=== PATIENT | female | born 1955 | race Caucasian/White ===

== ENCOUNTER 2016-11-11 12:50 | Observation (INO) | payer MEDICARE ==
[~2016-11-11] VITALS: Ht 157.5 cm; Wt 113.6 kg
[2016-11-11 12:54] VITALS: BP 172/83; PULSE 78; RESP 16; TEMP 97.8; O2SAT 95
[2016-11-11] MEDS ORDERED: NITROGLYCERIN 0.4 MG SL 25 TABS/BTL SL ONE (15:00)
[2016-11-11] MEDS ORDERED: ASPIRIN 81 MG CHEW TAB PO ONE (15:00)
[2016-11-11] MEDS ORDERED: SODIUM CHLORIDE 0.9% FLUSH 10 ML FLUSH IVF PRN (15:00)
--- NOTE | 2016-11-11 15:11 | PD ---
HPI Chief Complaint: Cardiac Complaint Time Seen by Provider: 14:46 Travel History International Travel<30 days: No Contact w/Intl Traveler<30days: No Traveled to known affect area: No History of Present Illness HPI The patient is a 61-year-old female who presents to the emergency department for palpitations and chest pain. The patient notes a three-week history of chest pain, now described as pressure, with shortness of breath. The patient states her symptoms worsen earlier today when she found out her would have to see a neurologist in [place]. The patient is currently visiting her mother who resides in a longterm. The patient states her symptoms started 3 weeks ago when she saw her primary physician who was going to perform an outpatient stress test, however, she has not yet had a stress test complete. She called the physician sound assistant who works for her physician who requested she come to the emergency department for further evaluation. The chest pain is described as pressure, substernal, nonradiating, associated with shortness of breath which is worse with exertion and minimally alleviated at rest. The patient has a history of hypertension which is diet controlled, denies any history of hyperlipidemia, diabetes, or coronary artery disease. The patient does have a history of tobacco use, quit smoking 22 years ago. The patient denies any history of pulmonary embolism or DVT. 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) Hysterectomy: Yes Social History Alcohol Use: No Tobacco Use: No Substance Use: No Allergies-Medications (Allergen,Severity, Reaction): Coded Allergies: kiwi (Verified Allergy, Severe, THROAT SWELLING, SHORTNESS OF BREATH, 11/11) Reported Meds & Prescriptions Reported Meds & Active Scripts Active Reported Lipitor (Atorvastatin Calcium) 20 Mg Tab 20 Mg PO HS Singulair (Montelukast Sodium) 10 Mg Tab 10 Mg PO HS Protonix (Pantoprazole Sodium) 40 Mg Tab 40 Mg PO DAILY Ambien (Zolpidem Tartrate) 10 Mg Tab 10 Mg PO HS PRN Spiriva Respimat Inh (Tiotropium Inh) 1.25 Mcg/Act Aero 2 Puff INH DAILY 1.25 mcg = 1 inhalation Effexor XR 24 HR (Venlafaxine HCl) 37.5 Mg Cap 37.5 Mg PO DAILY 7 Days After 7 days increase to 75mg daily Wellbutrin Xl 24 HR (Bupropion HCl) 150 Mg Tab 450 Mg PO DAILY Review of Systems Except as stated in HPI: all other systems reviewed are Neg HENT: No: Lightheadedness Cardiovascular: Positive: Chest Pain or Discomfort, Palpitations, Diaphoresis, Dyspnea on exertion Respiratory: Positive: Shortness of Breath Gastrointestinal: Positive: Nausea, No: Vomiting Musculoskeletal: No: Edema Neurologic: No: Dizziness Physical Exam Narrative GENERAL: Awake, alert, pleasant 61-year-old female who appears her stated age and is in no acute respiratory distress. SKIN: Focused skin assessment warm/dry. HEAD: Atraumatic. Normocephalic. EYES: Pupils equal and round. No scleral icterus. No injection or drainage. ENT: No nasal bleeding or discharge. Mucous membranes pink and moist. NECK: Trachea midline. No JVD. CARDIOVASCULAR: Regular rate and rhythm. No murmur appreciated. RESPIRATORY: No accessory muscle use. Clear to auscultation. Breath sounds equal bilaterally. GASTROINTESTINAL: Abdomen soft, non-tender, nondistended. Laparoscopic scars noted on the abdomen, no rebound tenderness. MUSCULOSKELETAL: No obvious deformities. No clubbing. No cyanosis. No edema. NEUROLOGICAL: Awake and alert. No obvious cranial nerve deficits. Motor grossly within normal limits. Normal speech. PSYCHIATRIC: Appropriate mood and affect; insight and judgment normal. Data Data Last Documented VS Vital Signs Date Time Temp Pulse Resp B/P Pulse Ox O2 Delivery O2 Flow Rate FiO2 11/11/16 15:25 98 18 145/56 100 Room Air 11/11/16 12:54 97.8 Orders Electrocardiogram (11/11/16 ) Electrocardiogram (11/11/16 14:59) Ckmb (Isoenzyme) Profile (11/11/16 14:59) Complete Blood Count With Diff (11/11/16 14:59) Comprehensive Metabolic Panel (11/11/16 14:59) Magnesium (Mg) (11/11/16 14:59) Prothrombin Time / Inr (Pt) (11/11/16 14:59) Act Partial Throm Time (Ptt) (11/11/16 14:59) Troponin I (11/11/16 14:59) Lipase (11/11/16 14:59) Chest, Single Ap (11/11/16 14:59) Ecg Monitoring (11/11/16 14:59) Bilateral Bp Monitoring (11/11/16 14:59) Iv Access Insert/Monitor (11/11/16 14:59) Oximetry (11/11/16 14:59) Oxygen Administration (11/11/16 14:59) Aspirin Chew (Aspirin Chew) (11/11/16 15:00) Sodium Chloride 0.9% Flush (Ns Flush) (11/11/16 15:00) Nitroglycerin Sl (Nitrostat Sl) (11/11/16 15:00) Admit Order (Ed Use Only) (11/11/16 16:33) Labs Laboratory Tests Test 11/11/16 15:16 White Blood Count 10.7 TH/MM3 Red Blood Count 4.42 MIL/MM3 Hemoglobin 13.3 GM/DL Hematocrit 40.1 % Mean Corpuscular Volume 90.7 FL Mean Corpuscular Hemoglobin 30.0 PG Mean Corpuscular Hemoglobin 33.1 % Concent Red Cell Distribution Width 13.5 % Platelet Count 239 TH/MM3 Mean Platelet Volume 8.5 FL Neutrophils (%) (Auto) 65.4 % Lymphocytes (%) (Auto) 24.5 % Monocytes (%) (Auto) 7.0 % Eosinophils (%) (Auto) 2.6 % Basophils (%) (Auto) 0.5 % Neutrophils # (Auto) 7.0 TH/MM3 Lymphocytes # (Auto) 2.6 TH/MM3 Monocytes # (Auto) 0.8 TH/MM3 Eosinophils # (Auto) 0.3 TH/MM3 Basophils # (Auto) 0.1 TH/MM3 CBC Comment DIFF FINAL Differential Comment Prothrombin Time 10.2 SEC Prothromb Time International 0.9 RATIO Ratio Activated Partial 30.3 SEC Thromboplast Time Sodium Level 142 MEQ/L Potassium Level 3.4 MEQ/L Chloride Level 104 MEQ/L Carbon Dioxide Level 28.6 MEQ/L Anion Gap 9 MEQ/L Blood Urea Nitrogen 18 MG/DL Creatinine 0.83 MG/DL Estimat Glomerular Filtration 70 ML/MIN Rate Random Glucose 79 MG/DL Calcium Level 8.9 MG/DL Magnesium Level 2.2 MG/DL Total Bilirubin 0.3 MG/DL Aspartate Amino Transf 12 U/L (AST/SGOT) Alanine Aminotransferase 20 U/L (ALT/SGPT) Alkaline Phosphatase 73 U/L Total Creatine Kinase 91 U/L Troponin I LESS THAN 0.02 NG/ML Total Protein 7.4 GM/DL Albumin 3.4 GM/DL Lipase 69 U/L [facility] Medical Decision Making Medical Screen Exam Complete: Yes Emergency Medical Condition: Yes Medical Record Reviewed: Yes Interpretation(s) EKG reveals normal sinus rhythm with a rate of 60. No ischemic changes or ectopy noted. Chest x-rays unremarkable Laboratory Tests Test 11/11/16 15:16 White Blood Count 10.7 TH/MM3 Red Blood Count 4.42 MIL/MM3 Hemoglobin 13.3 GM/DL Hematocrit 40.1 % Mean Corpuscular Volume 90.7 FL Mean Corpuscular Hemoglobin 30.0 PG Mean Corpuscular Hemoglobin 33.1 % Concent Red Cell Distribution Width 13.5 % Platelet Count 239 TH/MM3 Mean Platelet Volume 8.5 FL Neutrophils (%) (Auto) 65.4 % Lymphocytes (%) (Auto) 24.5 % Monocytes (%) (Auto) 7.0 % Eosinophils (%) (Auto) 2.6 % Basophils (%) (Auto) 0.5 % Neutrophils # (Auto) 7.0 TH/MM3 Lymphocytes # (Auto) 2.6 TH/MM3 Monocytes # (Auto) 0.8 TH/MM3 Eosinophils # (Auto) 0.3 TH/MM3 Basophils # (Auto) 0.1 TH/MM3 CBC Comment DIFF FINAL Differential Comment Prothrombin Time 10.2 SEC Prothromb Time International 0.9 RATIO Ratio Activated Partial 30.3 SEC Thromboplast Time Sodium Level 142 MEQ/L Potassium Level 3.4 MEQ/L Chloride Level 104 MEQ/L Carbon Dioxide Level 28.6 MEQ/L Anion Gap 9 MEQ/L Blood Urea Nitrogen 18 MG/DL Creatinine 0.83 MG/DL Estimat Glomerular Filtration 70 ML/MIN Rate Random Glucose 79 MG/DL Calcium Level 8.9 MG/DL Magnesium Level 2.2 MG/DL Total Bilirubin 0.3 MG/DL Aspartate Amino Transf 12 U/L (AST/SGOT) Alanine Aminotransferase 20 U/L (ALT/SGPT) Alkaline Phosphatase 73 U/L Total Creatine Kinase 91 U/L Troponin I LESS THAN 0.02 NG/ML Total Protein 7.4 GM/DL Albumin 3.4 GM/DL Lipase 69 U/L Differential Diagnosis Differential diagnosis includes acute coronary syndrome, STEMI, deconditioning, cardiomyopathy, pleural effusion, congestive heart failure, pulmonary embolism, symptomatic anemia. Narrative Course IV was established, labs were drawn and sent, and the patient was placed on cardiac telemetry monitoring and continuous pulse oximetry monitoring. EKG was ordered and interpreted. I doubt the patient has a pulmonary embolism as her heart rate was 60, pulse oximetry is within normal limits, and her symptoms started 3 weeks ago, prior to travel. The patient has progressing chest pain described as pressure with shortness of breath, may have acute coronary syndrome. The patient was administered aspirin and nitroglycerin sublingual. Chest x-ray was obtained. Chest x-ray was negative. The patient's initial troponin is negative. The patient does have risk factors, slightly atypical pain, will be 23 hour observation to the chest pain center for serial cardiac enzymes and further evaluation by cardiology for possible stress test. The patient is comfortable with this plan of care and disposition. Physician Communication Physician Communication The patient will be a 23 hour observation to the chest pain center for serial cardiac enzymes and further evaluation by cardiology. Diagnosis Primary Impression: Chest pain Qualified Code: R07.9 - Chest pain, unspecified type Admitting Information Admitting Physician Requests: Observation Condition: Stable Sanjeev Somers MD Nov 11, 2016 15:10 Condition: Stable Sanjeev Somers MD Nov 11, 2016 15:10
[2016-11-11 15:25] VITALS: BP 145/56; PULSE 98; RESP 18; O2SAT 100
[2016-11-11 15:27] LABS: BASOPHIL # 0.1 TH/MM3 (0-0.2); BASOPHIL % 0.5 % (0.0-2.0); EOSINOPHIL # 0.3 TH/MM3 (0-0.4); EOSINOPHIL % 2.6 % (0.0-4.0); HEMATOCRIT 40.1 % (35.0-46.0); HEMO FLAGS DIFF FINAL; LYMPH % 24.5 % (9.0-44.0); LYMPHOCYTE # 2.6 TH/MM3 (1.0-4.8); MEAN CELL VOLUME 90.7 FL (80.0-100.0); MEAN CORPUSCULAR HGB CONC 33.1 % (32.0-36.0); NEUT % 65.4 % (16.0-70.0); PLATELET COUNT 239 TH/MM3 (150-450); RED BLOOD COUNT 4.42 MIL/MM3 (4.00-5.30); RED CELL DISTRIBUTION WIDTH 13.5 % (11.6-17.2); WHITE BLOOD COUNT 10.7 TH/MM3 (4.0-11.0)
[2016-11-11 15:37] LABS: APTT (PATIENT) 30.3 SEC (24.3-30.1); INTERNATIONAL NORMALIZED RATIO 0.9 RATIO; PROTHROMBIN TIME - PATIENT 10.2 SEC (9.8-11.6)
[2016-11-11 15:43] LABS: ALT (GPT) 20 U/L (10-53); ANION GAP 9 MEQ/L (5-15); AST (GOT) 12 U/L (15-37); BICARBONATE 28.6 MEQ/L (21.0-32.0); BLOOD UREA NITROGEN 18 MG/DL (7-18); CHLORIDE 104 MEQ/L (98-107); GLOMERULAR FILTRATION RATE 70 ML/MIN (>89); MAGNESIUM 2.2 MG/DL (1.5-2.5); POTASSIUM 3.4 MEQ/L (3.5-5.1); SODIUM (NA) 142 MEQ/L (136-145)
[2016-11-11 15:47] LABS: ALKALINE PHOSPHATASE 73 U/L (45-117); TOTAL BILIRUBIN ADULT 0.3 MG/DL (0.2-1.0)
[2016-11-11 15:49] LABS: CREATINE KINASE 91 U/L (26-192)
[2016-11-11] MEDS ORDERED: BUPR150XL PO (16:20)
[2016-11-11] MEDS ORDERED: LIPI20TA PO (16:20)
[2016-11-11] MEDS ORDERED: MONT10TA2 PO (16:20)
[2016-11-11] MEDS ORDERED: AMBI10TA PO (16:20)
[2016-11-11] MEDS ORDERED: VENL1CAP38 PO (16:20)
[2016-11-11] MEDS ORDERED: PROT40TA PO (16:20)
[2016-11-11] MEDS ORDERED: TIOT1AER2 INH (16:20)
--- NOTE | 2016-11-11 16:42 | RADRPT ---
EXAM DATE/TIME: 11/11/2016 16:31 [facility] COMPARISON: No previous studies available for comparison. INDICATIONS : Shortness of breath and chest pain. MEDICAL HISTORY : Chronic obstructive pulmonary disease. Congestive heart failure. SURGICAL HISTORY : None. ENCOUNTER: Initial ACUITY: 2 days PAIN SCORE: 3/10 LOCATION: Bilateral chest middle. FINDINGS: A single view of the chest demonstrates the lungs to be symmetrically aerated without evidence of mas s, infiltrate or effusion. The cardiomediastinal contours are unremarkable. Osseous structures are intact. CONCLUSION: No acute disease. Keyshawn Sweet MD on November 11, 2016 at 16:40 Board Certified Radiologist. This report was verified electronically.
[2016-11-11] MEDS ORDERED: cloNIDine HCL 0.1 MG TAB PO PRN (17:45)
[2016-11-11] MEDS ORDERED: POTASSIUM CHLORIDE 20 MEQ CONTROLLED RELEASE TAB PO ONE (17:45)
[2016-11-11] MEDS ORDERED: ACETAMINOPHEN 500 MG CPLT PO PRN (17:45)
[2016-11-11] MEDS ORDERED: ONDANSETRON HCL 4 MG/2 ML VIAL IV PUSH PRN (17:45)
[2016-11-11] MEDS ORDERED: ALPRAZolam 0.25 MG TAB PO PRN (17:45)
[2016-11-11] MEDS ORDERED: RESP: ALBUTEROL 2.5 MG/IPRATROPIUM 0.5 MG NEB (PRN) NEB (17:45)
[2016-11-11 18:49] VITALS: BP 152/75; PULSE 63; RESP 18; O2SAT 97
[2016-11-11 19:36] VITALS: BP_SYST 167; BP_DIAS 67; BP_DIAS 76; PULSE 69; PULSE 77; RESP 18; O2SAT 97
[2016-11-11 20:53] VITALS: BP 181/81; PULSE 73; RESP 18; TEMP 98.2; O2SAT 95
[2016-11-11] MEDS ORDERED: ATORVASTATIN 20 MG TAB PO SCH (21:00)
[2016-11-11] MEDS: ACETAMINOPHEN/HYDROcodone 325 MG/7.5 MG TAB PO PRN (21:15)
[2016-11-11 23:11] VITALS: BP 138/67; PULSE 67; RESP 18; TEMP 98.1; O2SAT 93
[2016-11-12 03:16] VITALS: BP 140/68; PULSE 69; RESP 18; TEMP 98
[2016-11-12 08:45] VITALS: PULSE 107
[2016-11-12 08:48] VITALS: BP 147/60; PULSE 80; RESP 18; TEMP 98.2; O2SAT 95
[2016-11-12] MEDS ORDERED: PANTOPRAZOLE SOD 40 MG DELAYED RELEASE TAB PO SCH (09:00)
[2016-11-12] MEDS ORDERED: ASPIRIN 325 MG TAB PO SCH (09:00)
--- NOTE | 2016-11-12 09:37 | HHI.HP ---
HPI Primary Care Physician Unknown Chief Complaint Chest pressure and diaphoresis History of Present Illness Mrs. Flowers is a 61-year-old female patient with a known medical history of CHF, COPD and history of CVA who presented to the ED with complaints of chest pressure and diaphoresis. Patient states she is from [place] here in [place] visiting her mother in the long-term. She has been having bouts of diaphoresis for the past 2.5 weeks and has followed up with her PCP with plans to perform a cardiac stress test when she arrives back to [place]. Patient does state that she fell out of the bed yesterday morning and since then has complaints of chest pressure in her left chest, intermittent in nature lasting about 5 minutes at a time, denies any aggravating or relieving factors. She does state she called her who updated her PCP and recommendations were for her to present here to the ED. Pain in the left chest reproducible to palpation. Left upper arm and left abdominal bruise noted. Denies any previous cardiac work up or history of stress testing. Denies any recent illness, including fever, chills, cough, shortness of breath, abdominal pain, nausea, vomiting or diarrhea. 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" Reported Medications Reported Meds & Active Scripts Active Reported Lipitor (Atorvastatin Calcium) 20 Mg Tab 20 Mg PO HS Singulair (Montelukast Sodium) 10 Mg Tab 10 Mg PO HS Protonix (Pantoprazole Sodium) 40 Mg Tab 40 Mg PO DAILY Ambien (Zolpidem Tartrate) 10 Mg Tab 10 Mg PO HS PRN Spiriva Respimat Inh (Tiotropium Inh) 1.25 Mcg/Act Aero 2 Puff INH DAILY 1.25 mcg = 1 inhalation Effexor XR 24 HR (Venlafaxine HCl) 37.5 Mg Cap 37.5 Mg PO DAILY 7 Days After 7 days increase to 75mg daily Wellbutrin Xl 24 HR (Bupropion HCl) 150 Mg Tab 450 Mg PO DAILY Active Ordered Medications Current Medications Medications (Trade) Dose Ordered Sig/Mary Route Start Time Stop Time Status Last Admin (NS Flush) 2 ml UNSCH PRN IVF 11/11/16 15:00 (Zofran Inj) 4 mg Q6H PRN IV PUSH 11/11/16 17:45 ([place] 7.5-325 Mg) 1 tab Q6H PRN PO 11/11/16 17:45 11/11/16 21:15 (Tylenol) 500 mg Q6H PRN PO 11/11/16 17:45 (Xanax) 0.25 mg Q8H PRN PO 11/11/16 17:45 (Catapres) 0.1 mg Q4H PRN PO 11/11/16 17:45 (Aspirin) 325 mg DAILY PO 11/12/16 09:00 (Lipitor) 20 mg HS PO 11/11/16 21:00 11/11/16 20:46 (Protonix) 40 mg DAILY PO 11/12/16 09:00 Family History Denies any significant family medical history of cardiovascular disease. Social History Patient admits to a tobacco abuse history quit 22 years ago. 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 Physical Exam Vital Signs Vital Signs Date Time Temp Pulse Resp B/P Pulse Ox O2 Delivery O2 Flow Rate FiO2 11/12/16 08:48 98.2 80 18 147/60 95 11/12/16 08:45 107 11/12/16 06:22 21 11/12/16 03:16 98.0 69 18 140/68 11/11/16 23:11 98.1 67 18 138/67 93 11/11/16 20:53 98.2 73 18 181/81 95 11/11/16 19:36 69 18 167/67 97 11/11/16 19:36 77 18 167/76 97 Room Air 11/11/16 18:49 63 18 152/75 97 Room Air 11/11/16 15:25 98 18 145/56 100 Room Air 11/11/16 15:05 97 Room Air 11/11/16 14:49 64 97 Room Air 11/11/16 12:54 97.8 78 16 172/83 95 Physical Exam GENERAL: Well-developed, obese female patient lying in bed in nad. SKIN: Warm and dry. No rash. Left upper arm bruise and left lateral abdominal bruising post fall. HEAD: Atraumatic. Normocephalic. EYES: Pupils equal and round. No scleral icterus. No injection or drainage. ENT: No nasal bleeding or discharge. Mucous membranes pink and moist. NECK: Trachea midline. No JVD. CARDIOVASCULAR: Regular rate and rhythm. No murmur appreciated. RESPIRATORY: No accessory muscle use. Clear to auscultation. Breath sounds equal bilaterally. GASTROINTESTINAL: Abdomen soft, non-tender, nondistended. MUSCULOSKELETAL: Extremities without clubbing, cyanosis, or edema. No obvious deformities. NEUROLOGICAL: Awake and alert. No obvious cranial nerve deficits. Motor grossly within normal limits. Five out of 5 muscle strength in the arms and legs. Normal speech. PSYCHIATRIC: Appropriate mood and affect; insight and judgment normal. Laboratory Laboratory Tests Test 11/11/16 11/11/16 11/11/16 15:16 18:08 21:29 White Blood Count 10.7 Red Blood Count 4.42 Hemoglobin 13.3 Hematocrit 40.1 Mean Corpuscular Volume 90.7 Mean Corpuscular Hemoglobin 30.0 Mean Corpuscular Hemoglobin 33.1 Concent Red Cell Distribution Width 13.5 Platelet Count 239 Mean Platelet Volume 8.5 Neutrophils (%) (Auto) 65.4 Lymphocytes (%) (Auto) 24.5 Monocytes (%) (Auto) 7.0 Eosinophils (%) (Auto) 2.6 Basophils (%) (Auto) 0.5 Neutrophils # (Auto) 7.0 Lymphocytes # (Auto) 2.6 Monocytes # (Auto) 0.8 Eosinophils # (Auto) 0.3 Basophils # (Auto) 0.1 CBC Comment DIFF FINAL Differential Comment Prothrombin Time 10.2 Prothromb Time International 0.9 Ratio Activated Partial 30.3 Thromboplast Time Sodium Level 142 Potassium Level 3.4 Chloride Level 104 Carbon Dioxide Level 28.6 Anion Gap 9 Blood Urea Nitrogen 18 Creatinine 0.83 Estimat Glomerular Filtration 70 Rate Random Glucose 79 Calcium Level 8.9 Magnesium Level 2.2 Total Bilirubin 0.3 Aspartate Amino Transf 12 (AST/SGOT) Alanine Aminotransferase 20 (ALT/SGPT) Alkaline Phosphatase 73 Total Creatine Kinase 91 Troponin I LESS THAN 0.02 LESS THAN 0.02 LESS THAN 0.02 Total Protein 7.4 Albumin 3.4 Lipase 69 Result Diagram: 11/11/16 1516 11/11/16 1516 Imaging Last 24 hours Impressions Chest X-Ray 11/11/16 1459 Signed Impressions: Service Date/Time: Friday, November 11, 2016 16:31 - CONCLUSION: No acute disease. Keyshawn Sweet MD Assessment and Plan Assessment and Plan * Atypical chest pain likely musculoskeletal in nature. Admitted to the chest pain center. Serial EKGs and serial troponins ordered. All negative. CXR unremarkable. Will be seen by Dr. Pineda in the chest pain center. A nuclear ETT will be performed and if no signs of ischemia patient will be discharged and encouraged to follow up with PCP in the outpatient setting. Control pain, [place] PO PRN per pain scale. * COPD: Duonebs available PRN. * CHF: Monitor intake and output. Stable at this time. * History of TIA: Continue aspirin and atorvastatin. * GERD: Continue home Protonix. Patient is stable at this time and agreeable to the plan. Aaron Stahl Nov 12, 2016 09:37
[2016-11-12] MEDS: ACETAMINOPHEN/HYDROcodone 325 MG/7.5 MG TAB PO PRN (10:07)
[2016-11-12 12:26] VITALS: BP 127/60; PULSE 68; RESP 18; TEMP 97.9; O2SAT 97
[2016-11-12] MEDS ORDERED: REGADENOSON INJ 0.4 MG/5 ML SYR ONE (13:06)
--- NOTE | 2016-11-12 14:25 | RADRPT ---
EXAM DATE/TIME: 11/12/2016 12:40 [facility] COMPARISON: No previous studies available for comparison. INDICATIONS : Mid chest pain for two weeks. Angina. DOSE: 35.0 mCi Tc99m Myoview at stress. 11.0 mCi Tc99m Myoview at rest. 0.4 mg Lexiscan STRESS SYMPTOMS: Chest pressure. EJECTION FRACTION: 68% MEDICAL HISTORY : Chronic obstructive pulmonary disease. Congestive heart failure. Stroke. SURGICAL HISTORY : Hysterectomy. ENCOUNTER: Initial ACUITY: 2 weeks PAIN SCALE: 5/10 LOCATION: Midsternal chest TECHNIQUE: The patient underwent pharmacologic stress with infusion of prescribed dose. Continuous ECG tracing was monitored during stress. Gated SPECT imaging was performed after stress and conventional SPECT i maging was performed at rest. The examination was performed on a SPECT/CT scanner, both attenuation and non-corrected datasets were reviewed. FINDINGS: DISTRIBUTION: The maximum perfused segment at stress is in the anterolateral wall. PERFUSION STUDY: No reversible perfusion defects are seen. There are some matched defects along the anterior and infer ior bella. GATED STUDY: There is intact wall motion and thickening without hypokinetic or dyskinetic segments. CONCLUSION: 1. No reversible perfusion defect to suggest ischemia. 2. Ejection fraction 68%. RISK CATEGORY: Low (<1% Annual Mortality Rate) Chalino Lujan MD on November 12, 2016 at 14:21 Board Certified Radiologist. This report was verified electronically.
--- NOTE | 2016-11-12 14:52 | HHI.DCPOC ---
Discharge Care Plan Diagnosis: (1) Chest pain Goals to Promote Your Health * To prevent worsening of your condition and complications * To maintain your health at the optimal level Directions to Meet Your Goals Take your medications as prescribed Follow your dietary instruction Follow activity as directed Keep your appointments as scheduled Take your immunizations and boosters as scheduled If your symptoms worsen call your PCP, if no PCP go to Urgent Care Center or Emergency Room Smoking is Dangerous to Your Health. Avoid second hand smoke Call the 24-hour hour crisis hotline for domestic abuse at Aaron Stahl Nov 12, 2016 14:52
--- NOTE | 2016-11-12 14:59 | EKG ---
Date Performed: 11/11/2016 Time Performed: 21:18:44 PTAGE: 61 years EKG: Sinus rhythm NORMAL ECG PREVIOUS TRACING : 11/11/2016 18.25 Since previous tracing, no significant change noted DOCTOR: Azam Pineda Interpretating Date/Time 11/12/2016 14:58:22
--- NOTE | 2016-11-12 14:59 | TR ---
Date Performed: 11/12/2016 Time Performed: 13:20:19 DOCTOR: Azam Pineda DRUG LIST: CLINICAL HISTORY: ANGINA REASON FOR TEST: Angina REASON FOR ENDING: OBSERVATION: CONCLUSION: Lexiscan stress test was performed under standard four minute protocol. Radionuclid e was injected one minute prior to ending the test. No electrocardiographic abormalities were present to suggest ischemia. Nuclear imaging and interpretation are pending. COMMENTS:
--- NOTE | 2016-11-12 15:00 | EKG ---
Date Performed: 11/11/2016 Time Performed: 18:25:59 PTAGE: 61 years EKG: Sinus rhythm NORMAL ECG PREVIOUS TRACING : 11/11/2016 13.04 Since previous tracing, no significant change noted DOCTOR: Azam Pineda Interpretating Date/Time 11/12/2016 14:59:30
--- NOTE | 2016-11-12 15:01 | EKG ---
Date Performed: 11/11/2016 Time Performed: 13:04:14 PTAGE: 61 years EKG: Sinus rhythm NORMAL ECG NO PREVIOUS TRACING DOCTOR: Azam Pineda Interpretating Date/Time 11/12/2016 15:01:00
== END 2016-11-12 16:37 | disposition home or self-care (01) ==
LOC: NEPE 12:50 → NEDA 16:34 → NEPGCP 19:59
PROVIDERS: ADMIT Internal Medicine Cardiovascular Disease; ATTEND Internal Medicine Cardiovascular Disease
DX: R07.89 Other chest pain (principal); I11.0 Hypertensive heart disease with heart failure; I50.9 Heart failure, unspecified; J44.9 Chronic obstructive pulmonary disease, unspecified; K21.9 Gastro-esophageal reflux disease without esophagitis; Z86.73 Personal history of transient ischemic attack (TIA), and cerebral infarction without residual deficits; Z87.891 Personal history of nicotine dependence; Z79.899 Other long term (current) drug therapy
CPT/HCPCS: 71010; 78452; 80053; 82550; 83690; 83735; 84484; 85025; 85610; 85730; 93005; 93017; 99285; A9502; G0378; J2785